=== PATIENT | female | born 1950 | race Caucasian/White ===

== ENCOUNTER → 2017-08-22 | Outpatient (CLI) | payer MEDICARE ==
--- NOTE | 2017-08-28 13:05 | MM ---
Reason for exam: screening (asymptomatic). Last mammogram was performed 8 years and 11 months ago. History: Patient is postmenopausal. Family history of breast cancer in grandmother. Physical Findings: A clinical breast exam by your physician is recommended on an annual basis and results should be correlated with mammographic findings. MG 3D Screening Mammo W/Cad Bilateral CC and MLO view(s) were taken. Prior study comparison: October 09, 2015, mammogram, performed at [facility]. June 27, 2014, mammogram, performed at [facility]. September 29, 2008, bilateral digital screening mammogram. June 18, 2006, bilateral screening mammogram w/CAD. There are scattered fibroglandular densities. There is chronic nodularity bilaterally. Focal asymmetry 3 o'clock left breast middle depth appears more defined and partially disperses on 3D images. ASSESSMENT: Incomplete: need additional imaging evaluation, BI-RAD 0 RECOMMENDATION: Special view mammogram and ultrasound of the left breast. [facility] will attempt to contact patient to return for supplemental views and ultrasound.
== END | disposition home or self-care (01) ==
LOC: RADMAMWWP 11:05
PROVIDERS: ATTEND Internal Medicine
DX: Z12.31 Encounter for screening mammogram for malignant neoplasm of breast (principal)
CPT/HCPCS: 77063; G0202

== ENCOUNTER → 2017-09-03 | Outpatient (CLI) | payer MEDICARE ==
--- NOTE | 2017-09-03 10:44 | MM ---
Reason for exam: additional evaluation requested from abnormal screening. Last mammogram was performed less than 1 month ago. History: Patient is postmenopausal. Family history of breast cancer in grandmother. Physical Findings: Nurse did not find any significant physical abnormalities on exam. MG 3D Work Up W/Cad LT CC, MLO, and LM view(s) were taken of the left breast. Prior study comparison: August 23, 2017, bilateral MG 3d screening mammo w/cad. October 09, 2015, mammogram, performed at [facility]. June 27, 2014, mammogram, performed at [facility]. There is no discrete abnormality persisting on additional views. These results were verbally communicated with the patient and result sheet given to the patient on 09/03/17. ASSESSMENT: Negative, BI-RAD 1 RECOMMENDATION: Routine screening mammogram of both breasts in 1 year.
--- NOTE | 2017-09-03 10:46 | USB ---
Reason for exam: additional evaluation requested from abnormal screening. History: Patient is postmenopausal. Family history of breast cancer in grandmother. US Breast Workup Limited LT Left breast ultrasound demonstrates no cystic or solid lesion seen. These results were verbally communicated with the patient and result sheet given to the patient on 09/03/17. ASSESSMENT: Negative, BI-RAD 1 RECOMMENDATION: Routine screening mammogram of both breasts in 1 year.
== END | disposition home or self-care (01) ==
LOC: RADMAMWWP 09:32
PROVIDERS: ATTEND Internal Medicine
DX: R92.8 Other abnormal and inconclusive findings on diagnostic imaging of breast (principal)
CPT/HCPCS: 77065; 76642; G0279

== ENCOUNTER → 2018-10-26 | Outpatient (CLI) | payer MEDICARE ==
--- NOTE | 2018-10-26 17:16 | BD ---
EXAMINATION TYPE: Axial Bone Density DATE OF EXAM: 10/26/2018 COMPARISON: NONE CLINICAL HISTORY: Height: 64 Weight: 206.3 FRAX RISK QUESTIONS: Alcohol (3 or more units per day): no Family History (Parent hip fracture): no Glucocorticoids (More than 3mos): no (Ex: prednisone, prednisolone, methylprednisolone, dexamethasone, and hydrocortisone). History of Fracture in Adulthood: no Secondary Osteoporosis: 1. Type 1 Diabetes: no 2. Hyperthyroidism: no 3. Menopause before 45: yes 4. Malnutrition: no 5. Chronic liver disease: no Rheumatoid Arthritis: no Current Tobacco Use: no RISK FACTORS HISTORY OF: Family History of Osteoporosis: no Active: yes Diet low in dairy products/other sources of calcium: no Postmenopausal woman: age 41 Lost more than 2 inches in height since high school: no MEDICATIONS: lipitor, omeprazole, vitamins, caltrate, cardizem Thyroid Medications: synthroid How Lon years Additional History: EXAM MEASUREMENTS: Bone mineral densitometry was performed using the [employer]. Bone mineral density as measured about the Lumbar spine is: ----- L1-L4(G/cm2): 1.415 T Score Values are as follows: ----- L2: 2.0 ----- L3: 1.8 ----- L4: 2.5 ----- L1-L4: 2.0 Bone mineral density has: increased 5.1 % since study of: 09.19.2003 Bone mineral density about the R hip (g/cm2): 0.968 Bone mineral density about the L hip (g/cm2): 1.008 T Score values are as follows: -----R Neck: -0.5 -----L Neck: -0.2 -----R Total: 0.3 -----L Total: 0.6 Bone mineral density has: decreased -3.5 % since study of: 09.19.2003 IMPRESSION: Normal (Values between +1 and -1 indicate normal bone mass). Consider repeating this study in 5 year s or sooner if there is some new clinical indication. NOTE: T-SCORE=SD OF THE YOUNG ADULT MEAN.
--- NOTE | 2018-10-27 09:14 | MM ---
Reason for exam: screening (asymptomatic). Last mammogram was performed 1 year and 2 months ago. History: Patient is postmenopausal. Family history of breast cancer in grandmother. Physical Findings: A clinical breast exam by your physician is recommended on an annual basis and results should be correlated with mammographic findings. MG 3D Screening Mammo W/Cad Bilateral CC and MLO view(s) were taken. Prior study comparison: September 03, 2017, left breast MG 3d work up w/cad LT. August 23, 2017, bilateral MG 3d screening mammo w/cad. The breast tissue is heterogeneously dense. This may lower the sensitivity of mammography. There is chronic nodularity in the left breast. There is no discrete abnormality. ASSESSMENT: Benign, BI-RAD 2 RECOMMENDATION: Routine screening mammogram of both breasts in 1 year.
== END ==
LOC: RADMAMWWP 08:07
PROVIDERS: ATTEND Internal Medicine
DX: Z12.31 Encounter for screening mammogram for malignant neoplasm of breast (principal); M85.9 Disorder of bone density and structure, unspecified
CPT/HCPCS: 77063; 77067; 77080

== ENCOUNTER 2018-10-28 09:09 | Day surgery (SDC) | payer MEDICARE ==
[2018-10-23 14:09] VITALS: BMI 34.3
[~2018-10-28 09:09] MED LIST: LACTATED RINGERS 1,000 ML IV SCH; LIDOCAINE 1% 20 ML VIAL (10MG/ML) FOR IV START INTRADERMA PRN
[2018-10-28 10:25] VITALS: RESP 16; TEMP 97.2
[2018-10-28] MEDS ORDERED: MIDAZOLAM 2 MG/2 ML VIAL ONE (10:40)
[2018-10-28] MEDS ORDERED: PROPOFOL 10 MG/ML 20 ML VIAL IV ONE (10:40)
--- NOTE | 2018-10-28 11:06 | P.PCN ---
Date of Procedure: 10/28/18 Procedure(s) Performed: BRIEF HISTORY: Patient is a 68-year-old pleasant white female, scheduled for an elective colonoscopy as a part of evaluation of prior history of colon polyps. Last colonoscopy was 7 years ago. PROCEDURE PERFORMED: Colonoscopy with snare polypectomy. PREOPERATIVE DIAGNOSIS: History of colon polyps. IV sedation per Anesthesia. PROCEDURE: After informed consent was obtained, the patient, was brought into the endoscopy unit. IV sedation was administered by Anesthesia under continuous monitoring. Digital rectal examination was normal. Initially the Olympus CF- 160 flexible video colonoscope was then inserted in the rectum, gradually advanced into the cecum without any difficulty. Careful examination was performed as the scope was gradually being withdrawn. Ileocecal valve and the appendiceal orifice were visualized and appeared normal. Prep was fair. Mucosa of the cecum, ascending colon, appeared normal. In the transverse colon there was a 5 mm flat polyp that was removed by snare polypectomy. In the descending colon there was another 5 mm sessile polyp removed by snare polypectomy. Rest of the transverse colon, descending colon, sigmoid colon, and rectum appeared normal. Scattered sigmoid diverticulosis seen. Retroflexion was performed in the rectum and no lesions were seen. The patient tolerated the procedure well. IMPRESSION: 5 mm flat transverse colon polyp status post polypectomy 5 mm sessile descending colon polyp status post polypectomy Scattered sigmoid diverticulosis RECOMMENDATIONS: Findings of this examination were discussed with the patient as well as a family. She was advised to follow with the biopsy results. If the biopsy shows adenoma, she can have a repeat colonoscopy in 3-5 years
[2018-10-28 11:21] VITALS: BP 124/71; PULSE 61
== END 2018-10-28 11:57 | disposition home or self-care (01) ==
LOC: ORWHC2ENDO 09:09
PROVIDERS: ATTEND Internal Medicine Gastroenterology
DX: Z12.11 Encounter for screening for malignant neoplasm of colon (principal); D12.3 Benign neoplasm of transverse colon; D12.4 Benign neoplasm of descending colon; K57.30 Diverticulosis of large intestine without perforation or abscess without bleeding; Z86.010 Personal history of colon polyps; K21.9 Gastro-esophageal reflux disease without esophagitis; I10 Essential (primary) hypertension; E78.49 Other hyperlipidemia; E07.9 Disorder of thyroid, unspecified; Z79.890 Hormone replacement therapy; Z79.899 Other long term (current) drug therapy; Z88.0 Allergy status to penicillin
CPT/HCPCS: 88305; 45385; J2250; J2704

== ENCOUNTER → 2020-04-28 | Outpatient (CLI) | payer MEDICARE ==
--- NOTE | 2020-05-01 13:28 | MM ---
Reason for exam: screening (asymptomatic). Last mammogram was performed 1 year and 6 months ago. History: Patient is postmenopausal. Family history of breast cancer in grandmother. Took estrogen for 10 years. Took progesterone for 10 years. Physical Findings: A clinical breast exam by your physician is recommended on an annual basis and results should be correlated with mammographic findings. MG 3D Screening Mammo W/Cad Bilateral CC and MLO view(s) were taken. Prior study comparison: October 26, 2018, bilateral MG 3d screening mammo w/cad. September 03, 2017, left breast MG 3d work up w/cad LT. There are scattered fibroglandular densities. Focal asymmetry bilaterally. No significant changes when compared with prior studies. ASSESSMENT: Benign, BI-RAD 2 RECOMMENDATION: Routine screening mammogram of both breasts in 1 year.
== END | disposition home or self-care (01) ==
LOC: RADMAMWWP 10:41
PROVIDERS: ATTEND Internal Medicine
DX: Z12.31 Encounter for screening mammogram for malignant neoplasm of breast (principal)
CPT/HCPCS: 77063; 77067

== ENCOUNTER → 2021-05-17 | Outpatient (CLI) | payer MEDICARE ==
--- NOTE | 2021-05-18 12:30 | MM ---
Reason for exam: screening (asymptomatic). Last mammogram was performed 1 year and 1 month ago. History: Patient is postmenopausal. Family history of breast cancer in grandmother. Took estrogen for 10 years. Took progesterone for 10 years. Physical Findings: A clinical breast exam by your physician is recommended on an annual basis and results should be correlated with mammographic findings. MG 3D Screening Mammo W/Cad Bilateral CC and MLO view(s) were taken. Prior study comparison: April 28, 2020, bilateral MG 3d screening mammo w/cad. Finding: There is a typically benign 5 mm equal density (isodense), circumscribed oval mass located 7 cm from the nipple in the upper outer quadrant, middle position of the right breast. There is a chronic nodularity in the right breast. Focal asymmetry right lower inner quadrant. New finding since April 28, 2020. ASSESSMENT: Incomplete: need additional imaging evaluation, BI-RAD 0 RECOMMENDATION: Ultrasound of the right breast. [facility] will attempt to contact patient to return for ultrasound.
== END | disposition home or self-care (01) ==
LOC: RADMAMWWP 13:53
PROVIDERS: ATTEND Internal Medicine Geriatric Medicine
DX: Z12.31 Encounter for screening mammogram for malignant neoplasm of breast (principal); Z78.0 Asymptomatic menopausal state; Z80.3 Family history of malignant neoplasm of breast; Z79.818 Long term (current) use of other agents affecting estrogen receptors and estrogen levels
CPT/HCPCS: 77063; 77067

== ENCOUNTER → 2021-05-25 | Outpatient (CLI) | payer MEDICARE ==
--- NOTE | 2021-05-25 14:57 | USB ---
Reason for exam: additional evaluation requested from abnormal screening. History: Patient is postmenopausal. Family history of breast cancer in grandmother. Took estrogen for 10 years. Took progesterone for 10 years. Physical Findings: Nurse did not find any significant physical abnormalities on exam. US Breast Workup Limited RT Technologist: Kiah Quiroga Right limited breast ultrasound including focal area of concern, retroareolar and axilla demonstrates a 0.8 x 0.6 x 0.3cm smooth, anechoic lesion at 10 o'clock. These results were verbally communicated with the patient and result sheet given to the patient on 05/25/21. ASSESSMENT: Benign, BI-RAD 2 RECOMMENDATION: Return to routine screening mammogram schedule for both breasts.
== END | disposition home or self-care (01) ==
LOC: RADUSWWP 13:46
PROVIDERS: ATTEND Internal Medicine Geriatric Medicine
DX: N64.89 Other specified disorders of breast (principal); Z78.0 Asymptomatic menopausal state; Z80.3 Family history of malignant neoplasm of breast; Z79.818 Long term (current) use of other agents affecting estrogen receptors and estrogen levels

== ENCOUNTER → 2021-05-30 | Outpatient (CLI) | payer MEDICARE ==
[2021-05-31 05:41] LABS: Anion Gap 15.2 mmol/L (4.00-12.00); BUN/Creat Ratio 48.67 Ratio (12.00-20.00); Blood Urea Nitrogen 21.9 mg/dL (9.0-27.0); Calcium 9.3 mg/dL (8.7-10.3); Carbon Dioxide 26.1 mmol/L (21.6-31.8); Magnesium 1.9 mg/dL (1.5-2.4); Non-African American GFR(CKD) 100.1 (60.0-200.0); Potassium 3.1 mmol/L (3.5-5.5)
== END | disposition home or self-care (01) ==
LOC: LABWHC1 07:46
PROVIDERS: ATTEND Nurse Practitioner Adult Health
DX: I10 Essential (primary) hypertension (principal)
CPT/HCPCS: 36415; 80048; 83735

== ENCOUNTER → 2022-06-24 | Outpatient (CLI) | payer MEDICARE ==
--- NOTE | 2022-06-24 09:44 | BD ---
EXAMINATION TYPE: Axial Bone Density DATE OF EXAM: 06/24/2022 COMPARISON: 09-19-2003 PREVIOUS OF 10-26-2018 UNAVAILABLE CLINICAL HISTORY: 71 years year old Female. ICD-10 CODE: M81.0 SCREEN OSTEOPOROSIS Height: 64IN Weight: 212LB FRAX RISK QUESTIONS: Secondary Osteoporosis: 3. Menopause before 45: YES RISK FACTORS HISTORY OF: Active: YES Postmenopausal woman: YES Take estrogen and/or progesterone medications: YES, NONE CURRENT How long: ABOUT 10 YEARS MEDICATIONS: Thyroid Medications: Which medication: Synthroid How Lon YEARS Additional Medications: CALCIUM, VITAMIN D, BP MEDS, CHOLESTEROL MEDS, REFLUX MED Additional History: EXAM MEASUREMENTS: Bone mineral densitometry was performed using the [employer] System. Bone mineral density as measured about the Lumbar spine is: ----- L1-L4(G/cm2): 1.364 T Score Values are as follows: ----- L1: 1.2 ----- L2: 1.5 ----- L3: 0.8 ----- L4: 2.4 ----- L1-L4: 1.5 Bone mineral density has: Increased 0.6% since study of: 09-19-2003 PREVIOUS OF 10-26-18 UNAVAILABLE Bone mineral density about the R hip (g/cm2): 1.040 Bone mineral density about the L hip (g/cm2): 1.074 T Score values are as follows: -----R Neck: -0.8 -----L Neck: -0.2 -----R Total: 0.3 -----L Total: 0.5 Bone mineral density has: Decreased -4.4% since study of: 09-19-2003 FRAX%s: The graph provided illustrates a 8.2% chance for a major osteoporotic fx and a 0.9% chance fo r the hips probability for fx in 10 years time. IMPRESSION: Normal (Values between +1 and -1 indicate normal bone mass). Consider repeating this study in 5 year s or sooner if there is some new clinical indication. NOTE: T-SCORE=SD OF THE YOUNG ADULT MEAN.
--- NOTE | 2022-06-25 08:32 | MM ---
Reason for Exam: Screening (asymptomatic). Last mammogram was performed 1 year(s) and 1 month(s) ago. Patient History: Menarche at age 10. First Full-Term at age 25. Postmenopausal. Patient used Estrogen for 10 years. Patient used Progesterone for 10 years. Paternal grandmother had breast cancer, age 78. Maternal cousin had breast cancer. Risk Values: Rosie 5 year model risk: 2.0%. NCI Lifetime model risk: 4.8%. Prior Study Comparison: 10/26/2018 Bilateral Screening Mammogram, [facility]. 04/28/2020 Bilateral Screening Mammogram, [facility]. 05/17/2021 Bilateral Screening Mammogram, [facility]. Tissue Density: There are scattered fibroglandular densities. Findings: Analyzed By CAD. There is no suspicious group of microcalcifications or new suspicious mass in either breast. Stable chronic nodularity within both breasts. No significant change from prior exams. Overall Assessment: Benign, BI-RAD 2 Management: Screening Mammogram of both breasts in 1 year. A clinical breast exam by your physician is recommended on an annual basis and results should be correlated with mammographic findings. Electronically signed and approved by: Rom Holloway D.O.
== END | disposition home or self-care (01) ==
LOC: RADMAMWWP 08:46
PROVIDERS: ATTEND Internal Medicine Geriatric Medicine
DX: Z12.31 Encounter for screening mammogram for malignant neoplasm of breast (principal); Z78.0 Asymptomatic menopausal state; Z80.3 Family history of malignant neoplasm of breast
CPT/HCPCS: 77063; 77067; 77080

== ENCOUNTER → 2023-08-15 | Outpatient (CLI) | payer MEDICARE ==
--- NOTE | 2023-08-19 21:16 | MM ---
Reason for Exam: Screening (asymptomatic). Last mammogram was performed 1 year(s) and 2 month(s) ago. Patient History: Menarche at age 10. First Full-Term at age 25. Postmenopausal. Patient used Estrogen for 10 years. Patient used Progesterone for 10 years. Paternal grandmother had breast cancer, age 78. Maternal cousin had breast cancer. Risk Values: Rosie 5 year model risk: 2.0%. NCI Lifetime model risk: 4.2%. Prior Study Comparison: 04/28/2020 Bilateral Screening Mammogram, [facility]. 05/17/2021 Bilateral Screening Mammogram, [facility]. 06/24/2022 Bilateral MG 3D screening mammo w/cad, [facility]. Tissue Density: There are scattered fibroglandular densities. Findings: Analyzed By CAD. Chronic bilateral nodularity. There is no suspicious group of microcalcifications or new suspicious mass in either breast. Overall Assessment: Benign, BI-RAD 2 Management: Screening Mammogram of both breasts in 1 year. . Patient should continue monthly self-breast exams. A clinical breast exam by your physician is recommended on an annual basis. This exam should not preclude additional follow-up of suspicious palpable abnormalities. Note on Rosie scores and lifetime risk: 1. A Rosie score greater than 3% is considered moderate risk. If this is the case, consider specialist referral to assess eligibility for a risk reducing agent. 2. If overall lifetime risk for the development of breast cancer is 20% or higher, the patient may qualify for future screening with alternating mammogram and breast MRI. Electronically signed and approved by: Quirino Augustine M.D. Radiologist
== END | disposition home or self-care (01) ==
LOC: RADMAMWWP 14:25
PROVIDERS: ATTEND Internal Medicine Geriatric Medicine
DX: Z12.31 Encounter for screening mammogram for malignant neoplasm of breast (principal); Z78.0 Asymptomatic menopausal state; Z80.3 Family history of malignant neoplasm of breast
CPT/HCPCS: 77063; 77067

== ENCOUNTER 2024-01-21 09:33 | Day surgery (SDC) | payer MEDICARE ==
[2024-01-15 16:55] VITALS: BMI 34.7
[~2024-01-21 09:33] MED LIST changes: -LACTATED RINGERS 1,000 ML IV SCH; +LIDOCAINE 1% (10MG/ML) FOR IV START INTRADERMA PRN; -LIDOCAINE 1% 20 ML VIAL (10MG/ML) FOR IV START INTRADERMA PRN
[2024-01-21] MEDS: LACTATED RINGERS 1,000 ML IV SCH (10:37)
[2024-01-21 10:40] VITALS: PULSE 70; TEMP 97.2
[2024-01-21] MEDS ORDERED: PROPOFOL 10 MG/ML 20 ML VIAL IV ONE (10:51)
--- NOTE | 2024-01-21 11:16 | P.PCN ---
Date of Procedure: 01/21/24 Procedure(s) Performed: BRIEF HISTORY: Patient is a 73-year-old pleasant white female scheduled for an elective colonoscopy as a part of history of colon polyps. PROCEDURE PERFORMED: Colonoscopy. PREOPERATIVE DIAGNOSIS: History of colon polyps. IV sedation per Anesthesia. PROCEDURE: After informed consent was obtained, the patient, was brought into the endoscopy unit. IV sedation was administered by Anesthesia under continuous monitoring. Digital rectal examination was normal. Initially the Olympus CF-160 flexible video colonoscope was then inserted in the rectum, gradually advanced into the cecum without any difficulty. Careful examination was performed as the scope was gradually being withdrawn. Ileocecal valve and the appendiceal orifice were visualized and appeared normal. Prep was excellent. Mucosa of the cecum, ascending colon, transverse colon, descending colon, sigmoid colon, and rectum appeared normal. Scattered sigmoid diverticulosis retroflexion was performed in the rectum and no lesions were seen. The patient tolerated the procedure well. IMPRESSION: Normal-appearing colon from rectum to cecum with no evidence of colorectal neoplasia. Scattered sigmoid diverticulosis. RECOMMENDATIONS: Findings of this examination were discussed with the patient as well as her family. She was advised to have repeat colonoscopy in 5 years because of the prior history of colon polyps.
[2024-01-21 11:38] VITALS: BP 130/65; RESP 16
== END 2024-01-21 12:00 | disposition home or self-care (01) ==
LOC: ORWHC2ENDO 09:33
PROVIDERS: ATTEND Internal Medicine Gastroenterology
DX: Z12.11 Encounter for screening for malignant neoplasm of colon (principal); K63.5 Polyp of colon; K57.30 Diverticulosis of large intestine without perforation or abscess without bleeding; I10 Essential (primary) hypertension; E78.5 Hyperlipidemia, unspecified; E03.9 Hypothyroidism, unspecified; K21.9 Gastro-esophageal reflux disease without esophagitis; Z79.890 Hormone replacement therapy; Z88.0 Allergy status to penicillin; Z98.891 History of uterine scar from previous surgery; Z79.899 Other long term (current) drug therapy
CPT/HCPCS: J2704; G0105; 45378

== ENCOUNTER → 2024-05-13 | Outpatient (CLI) | payer MEDICARE ==
[2024-05-13 15:29] LABS: ALT 25 U/L (8-44); AST 23 U/L (13-35); Albumin 4.1 g/dL (3.8-4.9); Albumin/Globulin Ratio 2.28 Ratio (1.60-3.17); Alkaline Phosphatase 85 U/L (41-126); Blood Urea Nitrogen 13.2 mg/dL (9.0-27.0); Calcium 9.4 mg/dL (8.7-10.3); Carbon Dioxide 26.5 mmol/L (21.6-31.8); Chloride 106 mmol/L (96-109); Globulin 1.8 g/dL (1.6-3.3); Glucose 115 mg/dL (70-110); Potassium 4.2 mmol/L (3.5-5.5); Sodium 143 mmol/L (135-145); Total Bilirubin 0.6 mg/dL (0.3-1.2); Total Protein 5.9 g/dL (6.2-8.2)
== END | disposition home or self-care (01) ==
LOC: LABWHC1 07:25
PROVIDERS: ATTEND Internal Medicine Geriatric Medicine
DX: N17.9 Acute kidney failure, unspecified (principal)
CPT/HCPCS: 36415; 80053

== ENCOUNTER → 2024-06-14 | Outpatient (CLI) | payer MEDICARE ==
[2024-06-14 11:17] LABS: ALT 27 U/L (4-34); AST 28 U/L (14-36); African American GFR (CKD) >90 (>60 ml/min/1.73 sqM); Albumin 4.4 g/dL (3.5-5.0); Alkaline Phosphatase 92 U/L (38-126); Anion Gap 4 mmol/L; Blood Urea Nitrogen 12 mg/dL (7-17); Calcium 9.3 mg/dL (8.4-10.2); Carbon Dioxide 27 mmol/L (22-30); Chloride 108 mmol/L (98-107); Creatine Kinase 123 U/L (30-135); Globulin 2.2 g/dL; Glucose 115 mg/dL (74-99); Non-African American GFR(CKD) >90 (>60 ml/min/1.73 sqM); Potassium 3.9 mmol/L (3.5-5.1); Sodium 139 mmol/L (137-145); Total Bilirubin 0.9 mg/dL (0.2-1.3); Total Protein 6.6 g/dL (6.3-8.2)
--- NOTE | 2024-06-14 12:10 | CT ---
EXAMINATION TYPE: CT abdomen wo/w con CT DLP: 2173 mGycm, Automated exposure control for dose reduction was used. DATE OF EXAM: 06/14/2024 11:58 AM COMPARISON: None CLINICAL INDICATION:Female, 73 years old with history of N28.1 CYST OF KIDNEY, ACQUIRED; RT renal mas s TECHNIQUE: Standard CT of the abdomen before and after the uneventful administration 100 mL of Isov ue-370 intravenously. Oral contrast was administered. Coronal and sagittal reformats were performed. FINDINGS: LOWER CHEST: Bilateral lower lung field pulmonary nodules with largest in the right lower lobe measur ing up to 8 mm (series 4, image 3). Largest in the left lower lobe measures 5 mm (series 4, image 17) . Right lower lobe pulmonary cyst. ABDOMEN LIVER: Couple of hypodense lesions within the left hepatic lobe with largest measuring up to 1.9 cm. No enhancement identified consistent with simple cysts. GALLBLADDER AND BILE DUCTS: Prominent gallbladder measuring 4.6 cm in diameter. No biliary ductal dil atation. PANCREAS: Unremarkable. SPLEEN: Unremarkable. ADRENAL GLANDS: Unremarkable. KIDNEYS AND URETERS: No evidence of hydronephrosis or renal calculus. The kidneys enhance symmetrical ly. Partially exophytic right mid kidney 3.8 cm cyst without evidence for enhancement. Trace left lat eral mid kidney perinephric fluid. Contrast is demonstrated within both collecting systems on the del ayed phase. STOMACH AND BOWEL: Stomach and duodenum are unremarkable. Enteric contrast is reaches the hepatic fle xure. Mild colonic stool burden. No focal bowel wall thickening or stranding of a mature changes. No evidence of bowel obstruction. PERITONEUM: No evidence of pneumoperitoneum or free fluid. VASCULATURE: Mild atherosclerotic calcifications are present throughout the abdominal aorta and its b ranches. No evidence of aortic aneurysm. MUSCULOSKELETAL: No acute osseous abnormalities. Dextrocurvature of the lumbar spine. Mild multilevel degenerative disc disease. LYMPH NODES: No evidence for lymphadenopathy. SOFT TISSUE/ABDOMINAL WALL: Small fat filled umbilical hernia. IMPRESSION: 1. No CT evidence for an acute abdominal process. 2. Benign right renal nonenhancing 3.8 cm cyst. No prior imaging available for comparison. 3. Benign left hepatic lobe cysts measuring up to 1.9 cm. 4. Mildly prominent gallbladder. 5. Several pulmonary nodules within the visualized bilateral lower lungs with largest measuring up to 8 mm. Follow-up CT chest in 3 months is recommended. [facility], , 06/14/2024 12:08 PM
[2024-06-14 15:10] LABS: Basophils # (A) 0.02 X 10*3/uL (0.00-0.10); Basophils % (A) 0.4 %; Eosinophils # (A) 0.08 X 10*3/uL (0.04-0.35); Eosinophils % (A) 1.8 %; HCT 44.9 % (37.2-46.3); HGB 14.3 g/dL (12.0-15.0); Lymphocytes # (A) 0.74 X 10*3/uL (0.90-5.00); Lymphocytes % (A) 16.5 %; MCH 28.9 pg (27.0-32.0); MCHC 31.8 g/dL (32.0-37.0); MCV 90.7 FL (80.0-97.0); Mean Platelet Volume 10.3 FL (9.5-12.2); Monocytes # (A) 0.47 X 10*3/uL (0.20-1.00); Monocytes % (A) 10.5 %; NRBC Per 100 WBC 0 X 10*3/uL (0.00-0.01); Neutrophils # (A) 3.16 X 10*3/uL (1.80-7.70); Neutrophils % (A) 70.6 %; Platelet Count 164 X 10*3/uL (140-440); RBC 4.95 X 10*6/uL (4.10-5.20); RDW 13.5 % (11.5-14.5); WBC 4.48 X 10*3/uL (4.50-10.00)
[2024-06-14 15:13] LABS: Chol/HDL Ratio 3.25 Ratio; LDL Cholesterol,Calculated 61.7 mg/dL (0.0-131.0)
[2024-06-14 20:13] LABS: Microalbumin Creatinine Ratio <56 mg/g Cr (0-30); Urine Creatinine 21.3 mg/dL (28.0-217.0)
== END ==
LOC: RADCTMAIN 10:11
PROVIDERS: ATTEND Urology
DX: N28.1 Cyst of kidney, acquired
CPT/HCPCS: 36415; 74170; 80053; 80061; 82043; 82550; 82570; 83036; 84443; 85025

== ENCOUNTER → 2024-08-16 | Outpatient (CLI) | payer MEDICARE ==
--- NOTE | 2024-08-16 13:15 | BD ---
EXAMINATION TYPE: Axial Bone Density DATE OF EXAM: 08/16/2024 CLINICAL HISTORY: 74 years old Female. ICD-10 CODE: Z12.31 BR CANCER SCREENING Z78.0 ASYMP SUJIT STAT E , Additional History: Height: 63.7 Weight: 186 FRAX RISK QUESTIONS: Secondary Osteoporosis: 3. Menopause before 45: yes RISK FACTORS HISTORY OF: MEDICATIONS: Thyroid Medications: Which medication: Levothyroxine How Lon+ years EXAM MEASUREMENTS: Bone mineral densitometry was performed using the [employer] System. Bone mineral density as measured about the Lumbar spine is: ----- L1-L4(G/cm2): 1.369 T Score Values are as follows: ----- L1: 1.1 ----- L2: 1.6 ----- L3: 0.5 ----- L4: 2.7 ----- L1-L4: 1.6 Z Score Values are as follows: ----- L1: 2.2 ----- L2: 2.7 ----- L3: 1.3 ----- L4: 3.9 ----- L1-L4: 2.7 Bone mineral density has: Increased 0.4% since study of: 06-24-22 Bone mineral density about the R hip (g/cm2): 1.031 Bone mineral density about the L hip (g/cm2): 1.072 T Score values are as follows: -----R Neck: -0.6 -----L Neck: -0.4 -----R Total: 0.2 -----L Total: 0.5 Z Score values are as follows: -----R Neck: 0.9 -----L Neck: 1.1 -----R Total: 1.5 -----L Total: 1.8 Bone mineral density has: Decreased -0.5% since study of: 06-24-22 FRAX%s: The graph provided illustrates a 8.7% chance for a major osteoporotic fx and a 1.1% chance fo r the hips probability for fx in 10 years time. IMPRESSION: Normal (Values between +1 and -1 indicate normal bone mass). Consider repeating this study in 5 year s or sooner if there is some new clinical indication. NOTE: T-SCORE=SD OF THE YOUNG ADULT MEAN. [facility], , 08/16/2024 1:12 PM
--- NOTE | 2024-08-17 08:42 | MM ---
Reason for Exam: Screening (asymptomatic). Last screening mammogram was performed 12 month(s) ago. Patient History: Menarche at age 10. First Full-Term at age 25. Postmenopausal. Patient used Estrogen for 10 years. Patient used Progesterone for 10 years. Paternal grandmother had breast cancer, age 78. Maternal cousin had breast cancer, age 50. Risk Values: Rosie 5 year model risk: 2.0%. NCI Lifetime model risk: 4.0%. Prior Study Comparison: 05/17/2021 Bilateral Screening Mammogram, [facility]. 06/24/2022 Bilateral MG 3D screening mammo w/cad, [facility]. 08/15/2023 Bilateral MG 3D screening mammo w/cad, [facility]. Tissue Density: There are scattered areas of fibroglandular density. Findings: Analyzed By CAD. Right breast: There is no suspicious group of microcalcifications or new suspicious mass. Left breast: There is no suspicious group of microcalcifications or new suspicious mass. Overall Assessment: Negative, BI-RAD 1 Management: Screening Mammogram of both breasts in [address] [facility] will attempt to contact patient to return for supplemental views and ultrasound if indicated. Patient should continue monthly self-breast exams. A clinical breast exam by your physician is recommended on an annual basis. This exam should not preclude additional follow-up of suspicious palpable abnormalities. Note on Rosie scores and lifetime risk: 1. A Rosie score greater than 3% is considered moderate risk. If this is the case, consider specialist referral to assess eligibility for a risk reducing agent. 2. If overall lifetime risk for the development of breast cancer is 20% or higher, the patient may qualify for future screening with alternating mammogram and breast MRI. [facility], , 08/17/2024 8:39 AM. Electronically signed and approved by: Benton Michael DO
== END | disposition home or self-care (01) ==
LOC: RADMAMWWP 10:01
PROVIDERS: ATTEND Internal Medicine Geriatric Medicine
DX: Z12.31 Encounter for screening mammogram for malignant neoplasm of breast (principal); Z78.0 Asymptomatic menopausal state; Z80.3 Family history of malignant neoplasm of breast; R92.323 Mammographic fibroglandular density, bilateral breasts
CPT/HCPCS: 77063; 77067; 77080

== ENCOUNTER → 2024-08-20 | Outpatient (CLI) | payer MEDICARE ==
[2024-08-20 10:35] LABS: Basophils # (A) 0.02 X 10*3/uL (0.00-0.10); Basophils % (A) 0.6 %; Eosinophils # (A) 0.14 X 10*3/uL (0.04-0.35); Eosinophils % (A) 4.2 %; HCT 46.5 % (37.2-46.3); HGB 14.9 g/dL (12.0-15.0); Lymphocytes # (A) 1.05 X 10*3/uL (0.90-5.00); Lymphocytes % (A) 31.3 %; MCH 29.7 pg (27.0-32.0); MCV 92.6 FL (80.0-97.0); Mean Platelet Volume 10.9 FL (9.5-12.2); Monocytes # (A) 0.29 X 10*3/uL (0.20-1.00); Monocytes % (A) 8.7 %; NRBC Per 100 WBC 0 X 10*3/uL (0.00-0.01); Neutrophils # (A) 1.84 X 10*3/uL (1.80-7.70); Neutrophils % (A) 54.9 %; Platelet Count 172 X 10*3/uL (140-440); RBC 5.02 X 10*6/uL (4.10-5.20); WBC 3.35 X 10*3/uL (4.50-10.00)
[2024-08-20 10:51] LABS: ALT 20 U/L (8-44); AST 19 U/L (13-35); Albumin 4.3 g/dL (3.8-4.9); Albumin/Globulin Ratio 2.53 Ratio (1.60-3.17); Alkaline Phosphatase 82 U/L (41-126); BUN/Creat Ratio 13.71 Ratio (12.00-20.00); Blood Urea Nitrogen 9.6 mg/dL (9.0-27.0); Calcium 9.6 mg/dL (8.7-10.3); Carbon Dioxide 29.4 mmol/L (21.6-31.8); Chloride 105 mmol/L (96-109); Chol/HDL Ratio 2.69 Ratio; Globulin 1.7 g/dL (1.6-3.3); Glucose 105 mg/dL (70-110); LDL Cholesterol,Calculated 48.7 mg/dL (0.0-131.0); Potassium 4.4 mmol/L (3.5-5.5); Sodium 143 mmol/L (135-145); T4, Free (Free Thyroxine) 1.87 ng/dL (0.80-1.80); Total Bilirubin 0.6 mg/dL (0.3-1.2)
== END | disposition home or self-care (01) ==
LOC: LABWHC1 07:02
PROVIDERS: ATTEND Internal Medicine Geriatric Medicine
DX: Z00.00 Encounter for general adult medical examination without abnormal findings (principal); E11.65 Type 2 diabetes mellitus with hyperglycemia; E03.9 Hypothyroidism, unspecified
CPT/HCPCS: 36415; 80053; 80061; 83036; 84439; 84443; 85025

== ENCOUNTER → 2024-12-10 | Outpatient (CLI) | payer MEDICARE ==
[2024-12-10 10:22] LABS: Basophils # (A) 0.03 X 10*3/uL (0.00-0.10); Basophils % (A) 0.7 %; Eosinophils % (A) 2.3 %; HCT 45.9 % (37.2-46.3); HGB 14.7 g/dL (12.0-15.0); Lymphocytes # (A) 1.05 X 10*3/uL (0.90-5.00); Lymphocytes % (A) 24.5 %; MCH 29.5 pg (27.0-32.0); MCV 92.2 FL (80.0-97.0); Mean Platelet Volume 11.4 FL (9.5-12.2); Monocytes # (A) 0.38 X 10*3/uL (0.20-1.00); Monocytes % (A) 8.9 %; NRBC Per 100 WBC 0 X 10*3/uL (0.00-0.01); Neutrophils # (A) 2.72 X 10*3/uL (1.80-7.70); Neutrophils % (A) 63.4 %; Platelet Count 179 X 10*3/uL (140-440); RBC 4.98 X 10*6/uL (4.10-5.20); WBC 4.29 X 10*3/uL (4.50-10.00)
[2024-12-10 11:00] LABS: ALT 21 U/L (8-44); AST 23 U/L (13-35); Albumin 4.2 g/dL (3.8-4.9); Albumin/Globulin Ratio 2.33 Ratio (1.60-3.17); Alkaline Phosphatase 85 U/L (41-126); BUN/Creat Ratio 18.29 Ratio (12.00-20.00); Blood Urea Nitrogen 12.8 mg/dL (9.0-27.0); Calcium 9.4 mg/dL (8.7-10.3); Chloride 104 mmol/L (96-109); Chol/HDL Ratio 2.44 Ratio; Globulin 1.8 g/dL (1.6-3.3); Glucose 96 mg/dL (70-110); LDL Cholesterol,Calculated 59.2 mg/dL (0.0-131.0); Potassium 4.3 mmol/L (3.5-5.5); Sodium 141 mmol/L (135-145); T4, Free (Free Thyroxine) 1.52 ng/dL (0.80-1.80); Total Bilirubin 0.7 mg/dL (0.3-1.2); VLDL Calculation 19.92 mg/dL (5.00-40.00)
== END | disposition home or self-care (01) ==
LOC: LABWHC1 07:00
PROVIDERS: ATTEND Internal Medicine Geriatric Medicine
DX: E78.2 Mixed hyperlipidemia (principal); E11.65 Type 2 diabetes mellitus with hyperglycemia; E03.9 Hypothyroidism, unspecified; D64.9 Anemia, unspecified
CPT/HCPCS: 36415; 80053; 80061; 83036; 84439; 84443; 85025